=== PATIENT | male | born 1960 | race Caucasian/White ===

== ENCOUNTER → 2017-12-12 | Outpatient (CLI) | payer SELFPAY ==
[~2017-12-12] MED LIST: AMOX-559 PO; AMOX1TAB3 PO; ASPI-757 PO; ASPI-879 PO; CELE-1 PO; CEP500 PO; CLOP75TA65 PO; DOCU-202 PO; DOCU-416 PO; HYDR2TAB4 PO; IBUP800T37 PO; LOR5 PO; LOSA-54 PO; LOSA100T67 PO; LOSA25TA46; METO-259 PO; METO100T20 PO; METO50TA19 PO; NAPR-1043 PO; OLM20 PO; OLME5TAB8 PO; ONDA4TAB9 PO; OXYC-854 PO; OXYC-865 PO; OXYC1TAB54 PO; PANT40TA65 PO; PER PO; PRE10 PO; PRED-314 PO; PREN-99 PO; PROM-110 PO; SIM20 PO; SUL500 PO; VAR05PT PO; ZIA10 PO; ZOLM5TAB PO; ZOLP-1 PO; [UNRECOGNIZED DRUG - OTHER]
--- NOTE | 2017-12-13 00:30 | RADIOLOGY IMAGING REPORT ---
FACILITY: [facility] - [place] PATIENT NAME: Dudley Engel : 1960 MR: [id number] V: [id number] EXAM DATE: ORDERING PHYSICIAN: ENZO GALVIN TECHNOLOGIST: Location: [facility] - [place] Patient: Dudley Engel : 1960 Visit/Account:[id number] Date of Sevice: 12/12/2017 HAND COMPLETE RIGHT Indication: Pain. Osteoarthritis. Comparison: 04/26/2015 Findings: 3 views of the right hand are obtained. No acute fracture or dislocation is identified. There is mult ifocal osteoarthritis identified. At the wrist there is triscaphe joint and first carpometacarpal galindo nt osteoarthritis without significant change from the prior. In the hand, osteoarthritis is most pron ounced at the first, third and fourth metacarpophalangeal joints. Old fracture deformity involves the distal tuft of the long finger. No focal joint centered erosions. There is mild swelling about the s econd and third metacarpophalangeal joints. Impression: 1. 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 2. Mild soft tissue swelling about the second and third metacarpophalangeal joints. Report Dictated By: Melchor Kumar at 12/13/2017 12:23 AM Report E-Signed By: Melchor Kumar at 12/13/2017 12:26 AM WSN:[id number]
== END ==
LOC: RAD 16:12
PROVIDERS: ATTEND Family Medicine
DX: M19.041 Primary osteoarthritis, right hand (principal); M25.441 Effusion, right hand